=== PATIENT | male | born 1955 | race Caucasian/White ===

== ENCOUNTER 2020-07-01 10:15 | Emergency (ER) | payer MEDICARE ==
[~2020-07-01] VITALS: Ht 188 cm; Wt 111.7 kg
[~2020-07-01 10:15] MED LIST: ASPI-515 PO; ATOR-2 PO; CARV25TA PO; DIGO250T3 PO; FAMO20TA7 PO; FURO40TA6 PO; LISI-170 PO; METF500T17 PO; OMEP20CA20 PO; POTA10TA PO
--- NOTE | 2020-07-01 10:34 | NUR ---
AMBULATORY TO ED ROOM 22
[2020-07-01] MEDS ORDERED: ZOLP10TA PO (10:37)
[2020-07-01] MEDS ORDERED: ALLO300T PO (10:37)
--- NOTE | 2020-07-01 10:39 | NUR ---
REPORTS ANKLE SWELLING "FOR A COUPLE OF MONTHS", TROUBLE WALKING. UNABLE TO GET INTO PCP. DECREASED PEDAL PULSE BILAT. LT ANKLE SLIGHTLY WARMER THAN RT, SKIN COLOR WNL. DENIES ANKLE INJURIES BILAT. RT GREAT, 2ND, 3RD TOES AMPUTATED. HX DM, GOUT. C/O "MY RT EAR QUIT WORKING" MONTHS AGO. HEARING AIDS PRESENT BILAT. STATES "I'M PRETTY SURE I HAD COVID TWO MONTHS AGO" STATES HE THINKS HE HAD AN EAR INFECTION, SORE THROAT, CONGESTED. DID NOT GET COVID TEST.
--- NOTE | 2020-07-01 11:18 | NUR ---
EKG AT BS
[2020-07-01] MEDS ORDERED: SODIUM CHLORIDE FLUSH 10ML SYR IVF ONE (11:30)
--- NOTE | 2020-07-01 11:34 | NUR ---
XR DONE. PIV INTIATED. U/S AT BS. CARDIAC MONITORING CONTINUING: A FIB, RATE 110-129
[2020-07-01 11:54] LABS: BASOPHILS % (AUTO) 1 % (0-1); EOSINOPHILS % (AUTO) 3 % (1-7); LYMPHOCYTES % (AUTO) 29 % (22-44); MEAN CORPUSCULAR HEMOGLOBIN 33.3 pg (27.5-34.5); MEAN PLATELET VOLUME 7.7 fL (7.4-10.4); MONOCYTES % (AUTO) 12 % (2-9); NEUTROPHILS % (AUTO) 55 % (42-75); PLATELET COUNT 150 x10^3/uL (130-400); RED BLOOD COUNT 2.91 x10^6/uL (4.38-5.82); RED CELL DISTRIBUTION WIDTH 17.3 % (9.4-14.8)
[2020-07-01 12:05] LABS: ALANINE AMINOTRANSFERASE 25 U/L (12-78); ALBUMIN 3.8 g/dL (3.4-5.0); ANION GAP 4 mmol/L (5-15); CALCIUM 9.2 mg/dL (8.5-10.1); CHLORIDE 107 mmol/L (98-107)
[2020-07-01 12:08] LABS: ALKALINE PHOSPHATASE 75 U/L (45-117); BILIRUBIN,TOTAL 0.5 mg/dL (0.2-1.0); TOTAL PROTEIN 6.9 g/dL (6.4-8.2)
[2020-07-01 12:29] LABS: MD SCAN
--- NOTE | 2020-07-01 12:37 | NUR ---
RESTING QUIETLY ON GURNEY, USING OWN CELL PHONE. CARDIAC MONITORING CONTINUING: A FIB, RATE 110-129, SIDE RAIL UP X2, CALL LIGHT W/IN REACH, URINAL PROVIDED.
[2020-07-01 13:25] VITALS: BP 107/62
== END 2020-07-01 13:27 | disposition home or self-care (01) ==
LOC: ED 10:57
DX: M25.572 Pain in left ankle and joints of left foot (principal); I48.20 Chronic atrial fibrillation, unspecified; I13.0 Hypertensive heart and chronic kidney disease with heart failure and stage 1 through stage 4 chronic kidney disease, or unspecified chronic kidney disease; N18.30 Chronic kidney disease, stage 3 unspecified; D63.1 Anemia in chronic kidney disease; M25.462 Effusion, left knee; I48.91 Unspecified atrial fibrillation; R07.9 Chest pain, unspecified; Z95.0 Presence of cardiac pacemaker
CPT/HCPCS: 36415; 70450; 71045; 80053; 83880; 85025; 93005; 93970; 99285

== ENCOUNTER → 2020-12-21 | Outpatient (CLI) | payer MEDICARE ==
[~2020-12-21] MED LIST changes: +ALLO300T PO; -ASPI-515 PO; +ASPI-963 PO; +ZOLP10TA PO
== END | disposition home or self-care (01) ==
LOC: CFH 15:31
PROVIDERS: ATTEND Orthopaedic Surgery
DX: M19.072 Primary osteoarthritis, left ankle and foot (principal); M25.572 Pain in left ankle and joints of left foot

== ENCOUNTER 2020-12-25 05:10 | Day surgery (SDC) | payer MEDICARE ==
[~2020-12-25] VITALS: Ht 188 cm; Wt 108.4 kg
[2020-12-25] MEDS ORDERED: BUPIVACAINE/PF 0.5% ONE (06:25)
[2020-12-25] MEDS ORDERED: EPINEPHRINE 1 MG/ML, 1ML ONE (06:25)
[2020-12-25] MEDS ORDERED: LIDOCAINE/PF 1%, 30ML ONE (06:25)
[2020-12-25] MEDS ORDERED: XARELTO PO (06:26)
[2020-12-25] MEDS ORDERED: CARV-39 PO (06:29)
[2020-12-25] MEDS ORDERED: METF500T17 PO (06:29)
[2020-12-25] MEDS ORDERED: DIGO250T3 PO (06:29)
[2020-12-25] MEDS ORDERED: OMEP-110 PO (06:29)
[2020-12-25] MEDS ORDERED: ATOR40TA78 PO (06:29)
[2020-12-25] MEDS ORDERED: FURO80TA3 PO (06:29)
[2020-12-25] MEDS ORDERED: POTA20TA89 PO (06:29)
[2020-12-25] MEDS ORDERED: LACTATED RINGERS 1,000 ML IV SCH (06:30)
[2020-12-25] MEDS ORDERED: CHLORHEXIDINE 15 ML UDC PO ONE (06:30)
[2020-12-25] MEDS ORDERED: MIDAZOLAM 1 MG/ML, 2ML ONE (06:39)
[2020-12-25] MEDS ORDERED: FENTANYL PF 100 MCG/2ML ONE ×5 (06:39→12:08)
[2020-12-25 07:01] VITALS: BP 119/74
[2020-12-25] MEDS ORDERED: ACETAMINOPHEN 325 MG TABLET PO PRN (07:30)
[2020-12-25] MEDS ORDERED: ONDANSETRON 2MG/ML, 2ML IVPush PRN (07:30)
[2020-12-25] MEDS ORDERED: PROMETHAZINE 25 MG/ML, 1ML IVPush PRN (07:30)
[2020-12-25] MEDS ORDERED: METHOCARBAMOL 1,000 MG in DEXTROSE 5% 100 ML IV PRN (07:30)
[2020-12-25] MEDS ORDERED: OXYcodone 5 MG/5 ML ORAL.SOL UDC PO PRN (07:30)
[2020-12-25] MEDS ORDERED: MEPERIDINE/PF 25MG/0.5ML IVPush PRN (07:30)
[2020-12-25] MEDS ORDERED: HYDROmorphone 1 MG/ML, 1ML INJ IVPush PRN (07:30)
[2020-12-25] MEDS ORDERED: FENTANYL PF 100 MCG/2ML IV PRN (07:30)
[2020-12-25] MEDS ORDERED: LORazepam 2 MG/ML, 1ML IVPush PRN (07:30)
[2020-12-25] MEDS ORDERED: PROMETHAZINE 25 MG SUPP PR PRN (07:30)
[2020-12-25] MEDS ORDERED: LABETALOL 5MG/ML, 20ML IV PRN (07:30)
[2020-12-25] MEDS ORDERED: hydrALAzine 20 MG/ML, 1ML IV PRN (07:30)
[2020-12-25] MEDS ORDERED: HYDROmorphone 1 MG/ML, 1ML INJ ONE ×2 (08:06→10:05)
[2020-12-25] MEDS ORDERED: ONDANSETRON 2MG/ML, 2ML ONE (09:17)
[2020-12-25] MEDS ORDERED: DEXAMETHASONE 4 MG/ML, 1ML ONE (09:17)
[2020-12-25] MEDS ORDERED: CEFAZOLIN 1,000 MG ONE (09:17)
[2020-12-25] MEDS ORDERED: PROPOFOL 10 MG/ML, 20ML ONE (09:17)
[2020-12-25] MEDS ORDERED: TRANEXAMIC ACID 100 MG/ML, 10ML ONE (09:35)
[2020-12-25] MEDS ORDERED: OXYcodone 5 MG/5 ML ORAL.SOL UDC ONE (10:05)
[2020-12-25] MEDS ORDERED: MEPERIDINE/PF 25MG/ML,1ML ONE (10:09)
== END 2020-12-25 12:05 | disposition home or self-care (01) ==
LOC: OUT 05:10
PROVIDERS: ATTEND Orthopaedic Surgery
DX: M19.072 Primary osteoarthritis, left ankle and foot (principal); M14.672 Charcot's joint, left ankle and foot; M79.672 Pain in left foot; I10 Essential (primary) hypertension; E11.9 Type 2 diabetes mellitus without complications; Z95.0 Presence of cardiac pacemaker; I48.91 Unspecified atrial fibrillation; Z20.822 Contact with and (suspected) exposure to COVID-19; Z79.899 Other long term (current) drug therapy; Z87.891 Personal history of nicotine dependence; Z98.890 Other specified postprocedural states
CPT/HCPCS: 27687; 28725; 64447; 64450; 73650; 82962; 87635; 93005; C1713; C1762; J0690; J1100; J2250; J2405; J2704; J3010; J7120; 76000; J0171; J1170